=== PATIENT | male | born 1980 | race Caucasian/White ===

== ENCOUNTER 2024-09-02 10:03 | Emergency (ER) | payer OTHER, SELFPAY ==
[2024-09-02 10:20] VITALS: BP 130/86
[2024-09-02] MEDS: MOTRIN 600 MG PO (10:55)
[2024-09-02] MEDS: ROXICODONE 5 MG PO (10:55)
[2024-09-02] MEDS: LIDOCAINE 4% PATCH 1 PATCH TOPICAL (10:55)
--- NOTE | 2024-09-02 11:16 | ED.GENMED ---
History of Present Illness
General
Chief Complaint: Back Pain
Source: patient
Time Seen by Provider: 09/02/24 10:31
History of Present Illness
History of Present Illness:
44-year-old male presenting to the ER for evaluation of diffuse lower back pain that began a couple of days ago, went to a chiropractor and states since that time pain has gotten worse. He does note a history of lower back pain intermittently which
seems to be worse when lifting. Denies any new symptoms today but pain does not seem to be well-controlled by [id number] Advil. Patient last took Advil around 5 in the morning today. Denies any fevers, bowel or urinary incontinence, saddle
anesthesias, weakness or numbness, history of IV drug abuse or substance use, traumatic injuries, history of cancer or diabetes. Patient without any other concerns presently.
Past History
Past History
ED Past Medical History: None
ED Past Surgical History: None
Social History
Tobacco: Non-smoker
Alcohol: None
Drug: None
Personal:
Living: with family
Employment: Employed
Review of Systems
Review of Systems
All Other Systems: ROS reviewed and negative except as documented in HPI and ROS
Phy Exam
Physical Exam
Physical Exam:
GENERAL: Alert , in no apparent distress but appears uncomfortable especially with any attempted movement
EYE: clear conjunctiva b/l
NECK: Supple, no significant adenopathy.
ENT: o/p clr, mmm.
CARDIAC: Regular rate and rhythm .
LUNGS: Clear breath sounds bilaterally, no acute respiratory distress, no wheezes/rales/rhonchi
ABDOMEN: Soft, without focal tenderness, no r/g, no cvat
BACK: Normal range of motion, no focal tenderness, no midline bony tenderness, no rashes
NEUROLOGICAL: Alert and oriented, no focal neuro deficits. Patellar deep tendon reflexes intact and equal bilaterally, sensation grossly intact and equal to light touch bilateral lower extremities
SKIN: Warm and dry, skin intact.
MUSCULOSKELETAL: No edema, well perfused. EHL intact bilaterally
PSYCH: Normal and appropriate interaction.
Course
Orders/Labs/Results
Orders:
Orders
09/02/24 10:42
Ibuprofen [Motrin] 600 mg PO NOW STA
Lidocaine [Lidocaine 4% Patch] 1 patch TOPICAL NOW STA
Apply Lidocaine patch(s) to:: lower back
Oxycodone [Roxicodone] 5 mg PO NOW STA
CR Lumbar Spine Comp Min 4 Vw* Urgent
Comment:
Reason For Exam: low back pain
Vital Signs
Initial and Last Documented VS:
Initial Vital Signs
Temp Pulse Resp BP Pulse Ox
98.8 F 84 18 130/86 98
09/02/24 10:20 09/02/24 10:20 09/02/24 10:20 09/02/24 10:20 09/02/24 10:20
Last Documented Vital Signs
Temp Pulse Resp BP Pulse Ox
98.8 F 88 18 131/88 98
09/02/24 10:20 09/02/24 12:29 09/02/24 12:29 09/02/24 12:29 09/02/24 12:29
*Radiology
Radiology exam reviewed: preliminary read by ED provider (No acute fracture or malalignment)
*Critical Care Note
Total Time (30-74mins, 75-104mins- exclusive of procedures): Not Applicable
Patient Management
Escalation/DeEscalation of care consider admission/obs:
Patient's x-rays are unremarkable for any acute pathology. Discharged home with needed medications as needed. Patient was requesting a prescription for both muscle relaxer and oxycodone. I did advise him on not mixing the 2 medications due to
potential synergistic effect. Patient and expressed understanding.
ED Attending Note
-
Portions of this chart may have been created with voice recognition software.� Occasional wrong word or��sound alike� substitutions may have occurred due to the inherent limitations of voice recognition software.
Discharge Plan
Departure
Patient Disposition: Home (Routine Discharge)
Date of Disposition: 09/02/24
Time of Disposition: 12:21
Patient with high blood pressure during this ER visit?: No
Discharge Problem:
Low back pain
Instructions: Low Back Pain (DC)
Prescriptions:
New
diazepam [Valium] 5 mg tablet
5 mg PO BID PRN (Reason: muscle spasm) Qty: 8 0RF
methylprednisolone [Medrol (Jose Elias)] 4 mg tablets,dose pack
4 mg PO DIRECTED Qty: 21 0RF
oxycodone 5 mg tablet
5 mg PO BID PRN (Reason: Pain) Qty: 8 0RF
Referrals:
Porsha Crump MD [Family Provider] -
Shawn Galdamez MD [Active] - (Ortho - Call for appointment as needed)
Interventions
Interventions:
*Risk Screen - Suicide Last Done: 09/02/24 12:28
*General Assessment Last Done: 09/02/24 12:29
*Neglect/Abuse Screening Last Done: 09/02/24 12:28
ED- Fall Risk Assessment Last Done: 09/02/24 12:28
*ED COVID-19 Vaccine History Last Done: 09/02/24 10:20
*Nursing Disposition Last Done: 09/02/24 12:29
ED-Musculoskeletal Assessment Last Done: 09/02/24 12:28
Discharge Date and Time
Discharge Date/Time: 09/02/24 12:35
Print Language: [place]
[2024-09-02 12:29] VITALS: BP 131/88
== END 2024-09-02 12:35 | disposition home or self-care (01) ==
LOC: EMR 10:03
PROVIDERS: EMERGENCY PHYSICIAN Emergency Medicine; FAMILY PHYSICIAN Internal Medicine
DX: M54.50 Low back pain, unspecified (principal)
CPT/HCPCS: 99283; 72110